=== PATIENT | female | born 1980 | race Caucasian/White ===

== ENCOUNTER 2022-02-21 11:35 | Outpatient (CLI) | payer SELFPAY | END 2022-02-21 23:59 | disposition home or self-care (01) | LOC: LAB 11:40 | PROVIDERS: Referring Provider Urology; Visit Provider Urology | DX: N39.0 Urinary tract infection, site not specified (principal) | CPT/HCPCS: 87086; 87088 ==

== ENCOUNTER 2022-02-28 11:57 | Day surgery (SDC) | payer SELFPAY ==
[2022-02-25 10:18] LABS: Hematocrit 40.4 % (37-47); Hemoglobin 13.4 g/dL (12.0-15.0); Mean Corp Hgb Conc 33.2 g/dL (32-36); Mean Corpuscular Hgb 29.5 pg (27.0-32.0); Platelet Count 258 K/mm3 (150-450); RBC Distribution Width CV 12.1 % (11.6-14.6); RBC Distribution Width SD 39.6 fl (35.1-43.9); Red Blood Count 4.54 M/mm3 (4.2-5.4); White Blood Count 5.6 K/mm3 (4.4-11.0)
[2022-02-25 10:41] LABS: Anion Gap 6 (5-15); BUN 15 mg/dL (7-18); BUN/Creat Ratio 18.5 RATIO (10-20); Calcium,Total 8.9 mg/dL (8.5-10.1); Chloride 103 mmol/L (98-107); Creatinine, Serum 0.81 mg/dL (0.55-1.02); EST Glomerular Filtration Rate 82 mL/min (>60); Est Glom Filt Rate - Afr Amer 100 mL/min (>60); Glucose 89 mg/dL (74-106); Sodium Level 137 mmol/L (136-145)
[2022-02-28] VITALS (7 sets, daily range): BP systolic 133–142; BP diastolic 86–94; PULSE 74–100; RESP 16; TEMP 36.4–37.2; O2SAT 99–100; BMI 19.3
--- NOTE | 2022-02-28 08:15 | OP.PCM_ITS ---
Problems Associated Problem List Diagnoses (1) Stress incontinence: Report of Operation Date of Procedure: 02/28/22 Pre-Operative Diagnosis: stress incontinence Post-Operative Diagnosis: same Surgery/Procedure Performed:: midurethral sling, cystoscopy Surgeon: Kateryna Escoto Type of Anesthesia: General Estimated Blood Loss (mL): 10cc Description of Procedure: The patient is a 41-year-old female with stress urinary incontinence who underwent urodynamics and now presents for definitive surgical intervention. Informed consent was obtained. The patient was taken to the operating room and placed on the operating room table. Anesthesia monitored the head, neck, airway, IV access and vital signs throughout the case. Once anesthesia was appropriately administered, the patient was placed into dorsal lithotomy in Trendelenburg position. She was prepped and draped in usual sterile fashion. At this time a Velazquez catheter was inserted to straight drain and the bladder was emptied. The mid urethra was identified and isolated. The submucosa was injected with 1% lidocaine with epinephrine for hydrostatic di ssection and hemostatic control. A midline vertical 2 cm incision was made over the mid urethra. Sharp and blunt dissection was performed on either side of the urethra with care being taken to avoid entrance into the urethra. Using the trochars, the [place] mid urethral sling was inserted without difficulty with the tines each in the obturator complexes bilaterally. The mesh was positioned flat against the urethra without tension. The tensioning suture was then cut. The incision was closed using running interlocking 2-0 Vicryl. At this time the Velazquez catheter was removed and the cystoscope was inserted through the urethra under direct visualization into the urinary bladder. There were no injuries of the mucosa or the urethra identified. Bilateral ureteral orifices were located in the correct anatomic position on the area of the trigone. The remainder of the bladder mucosa was visualized and found to be without erythema, mass or foreign body. At this time the cystoscope was removed. The patient was then awakened and taken to the recovery room in good condition. There were no complications during this procedure. Grafts/Implants Used: Altis midurethral sling Complications None Admit VTE Documentation VTE Present on Admission: Yes VTE Mechan Device Prophylaxis: SCD's VTE Pharm Prophylaxis ordered?: No Reason prophylaxis not ordered:: Treatment Not Indicated
--- NOTE | 2022-02-28 08:16 | PCM.DC ---
Discharge Instructions Diet Discharge Diet: No restrictions Activity Discharge Activity: May Shower May resume sexual activity in: 4 weeks Lifting Restrictions: 5 pounds Additional Activity Instructions:: no exercise, strenuous activity or sexual activity, hot tubs, swimming, or tub bathing Dressing / Incision Call your doctor if your incision/area has: Continuous Slow Oozing, Sudden Increased Bleeding, Increased Pain/ Swelling and Foul Smelling Discharge Call your doctor if you observe: Fever of 101 or Higher, Inability to urinate and Inability to have a bowel movement Follow Up Care Please Follow Up With: Kateryna Escoto MD When: 2 weeks, call for appt Test Results: Test results from this visit will be discussed in further detail at your follow-up appointment, if applicable. Discharge Plan Admission Attending Provider: Kateryna Escoto Primary Care Provider: Pamela Alva Discharge Orders/Prescriptions Prescriptions: New oxycodone-acetaminophen [oxycodone-acetaminophen] 1 TABLET tablet 1 tab PO Q6H PRN PRN (Reason: Pain) 7 Days Qty: 20 RF: 0 cephalexin [cephalexin] 500 MG capsule 500 mg PO Q12 3 Days Qty: 6 RF: 0 Continued pyridoxine (vitamin B6) [Vitamin B-6] 100 mg Tablet 100 mg PO DAILY RF: 0 testosterone 1 % (25 mg/2.5gram) Gel In Packet 1 packet TRANSDERMAL DAILY RF: 0 bupropion HCl 300 mg Tablet Extended Release 24 Hr 300 mg PO DAILY RF: 0 cholecalciferol (vitamin D3) [Vitamin D3] 125 mcg (5,000 unit) Tablet 125 mcg PO DAILY RF: 0 cyanocobalamin (vitamin B-12) [Vitamin B-12] 5,000 mcg Tablet, Sublingual 5,000 mcg SUBLINGUAL DAILY RF: 0 Referrals / Follow Up: Pamela Alva PA [Primary Care Provider] - Disposition Disposition (needs filled in before D/C Order can be placed): Home, Self Care
[2022-02-28 12:21] LABS: Internal QC Validated? YES +Cl - CLEAR BKGD
[2022-02-28 12:23] LABS: Pregnancy, Urine Negative Negative
[2022-02-28] MEDS: Lactated Ringers 1,000 ML 30 ML IV (12:39)
[2022-02-28] MEDS: Cefazolin 2 GM in 0.9% Normal Saline 100 ML IV (13:37)
[2022-02-28] MEDS: Lidocaine 1% /Epi 1:100 (20ml) 20 ML Vial (14:12)
== END 2022-02-28 16:38 | disposition home or self-care (01) ==
LOC: SDC 12:02 → AC 12:03
PROVIDERS: Anesthesiology; Referring Provider Urology; Visit Provider Urology
PROC: 0TJB8ZZ Inspection of Bladder, Via Natural or Artificial Opening Endoscopic (ICD-10-PCS; CPT 57288; principal; 2022-02-28 13:30)
DX: N39.46 Mixed incontinence (principal); Z20.822 Contact with and (suspected) exposure to COVID-19
CPT/HCPCS: 57288; 00942; 36415; 80048; 81025; 85027; 87426; C9803; J7120; J2405